=== PATIENT | female | born 1995 ===

== ENCOUNTER 2022-02-11 00:02 | Inpatient (IN) ==
[2022-02-11 01:09] LABS: Hematocrit (blood only) 36.2 % (37-47); Hemoglobin 12.1 g/dL (12.0-16.0); Mean Corpuscular Hemoglobin 28.9 pg (25-34); Mean Corpuscular Hgb Conc 33.4 g/dL (32-36); Mean Corpuscular Volume 86.6 fL (80-100); Mean Platelet Volume 10.4 fL (7.4-10.4); Platelet Count 247 K/uL (130-400); RDW Coefficient of Variation 13.1 % (11.5-14.5); RDW Standard Deviation 41.7 fL (36.4-46.3); Red Blood Count 4.18 M/uL (4.2-5.4)
[2022-02-11] MEDS ORDERED: BUPIVACAINE 0.25% 30 ML VIAL ONE (03:28)
[2022-02-11] MEDS ORDERED: fentaNYL citrate 100 MCG/2 ML VIAL ONE (03:28)
[2022-02-11] MEDS ORDERED: SODIUM CHLORIDE 0.9% INJ 10 ML VIAL ONE (03:28)
[2022-02-11] MEDS ORDERED: ePHEDrine sulfate 50 MG/ML AMP ONE (03:28)
[2022-02-11] MEDS ORDERED: fentaNYL 2MCG/ML ROPIVACAINE 1.25MG/ML 100 ML BAG EPI ONE (03:29)
[2022-02-11] MEDS: LACTATED RINGER'S 1,000 ML IV PRN ×2 (03:40→07:56)
--- NOTE | 2022-02-11 03:54 | History & Physical Report ---
Date of Service February 11, 2022 Assessment & Plan (1) Post-dates : Plan: Epidural planned anticipate normal delivery Admission and Anticipated Discharge Date Admission Date: February 11, 2022 History of Present Illness Chief Complaint: ruptured membranes at 2320 clear fluid Primary Care Provider: BANG PCP 26 F P1001 at 40.1 weeks with SROM clear fluid at 2320 with onset of early labor. GBS is negative. Covid is negative. Allergies Allergy/AdvReac Type Severity Reaction Status Date / Time No Known Allergies Allergy Verified 02/11/22 00:12 Home Medications Medication Instructions Recorded Confirmed Type vit no.95-ferrous 1 tab PO DAILY 02/06/22 02/11/22 History fumarate 28 mg-folic acid 800 mcg tablet () metronidazole 500 mg tablet 500 mg PO BID 7 Days #14 tab 02/08/22 Rx Patient History Medical History No known health problems Surgical History No history of previous surgery Family History Other No history of previous surgery No known health problems Social History Smoking Status: Current every day smoker Second Hand Exposure: No; Hx Alcohol Use: No Hx Substance Use: No Preferred Language: Latvian Communication Ability: Effective Superintendent Meters Required: No Beliefs That Will Affect Care: None marital status: Single Current Living Situation: Family and Significant Other Current Living Situation Comment: 9 year old daughter Other Information That Helps Us Care for You: No Feels Safe at Home: Yes Safety Concerns: Feels Safe At This Time Assistive Devices: None OB History x1 10 y/a [employer] History neg Review of Systems All systems reviewed & are unremarkable except as noted in HPI & below Physical Exam Constitutional: WD/WN, vitals as above Eyes: PERRL, conjunctivae normal, anicteric sclerae Respiratory: normal respiratory effort, lungs clear to auscultation Cardiovascular: RRR, no murmur, no edema Skin: no rashes, warm and dry Neurologic: patellar DTR's 2+ bilat, sensation intact Psychiatric: A+Ox3, euthymic affect Genitourinary: no vaginal lesions, no adnexal mass OB Exam Abdomen: + fundal height and + vertex OB Exam Monitor Tracing: + external FHT monitor used, + external uterine monitor used, + category I and + normal FHT variability 75/-2 per nurse on admission Results & Data ([facility]) Vital Signs (Past 12 Hours) Vital Signs Temp Pulse Resp BP Pulse Ox 02/11/22 03:47 72 99 02/11/22 03:42 70 99 02/11/22 03:21 66 127/82 02/11/22 02:02 36.6 C 20 02/11/22 00:14 36.9 C 82 18 120/74 02/11/22 00:09 36.9 C 82 18 120/74 Laboratory Results 02/11/22 02/11/22 00:58 Unknown WBC 12.20 H RBC 4.18 L Hgb 12.1 Hct 36.2 L MCV 86.6 MCH 28.9 MCHC 33.4 RDW Std Deviation 41.7 RDW Coeff of Pranav 13.1 Plt Count 247 MPV 10.4 SARS-CoV-2, RNA, NAAT NEGATIVE Monitoring External Monitor Cat 1
[2022-02-11] MEDS ORDERED: fentaNYL 2MCG/ML ROPIVACAINE 1.25MG/ML 100 ML BAG EPI PRN (03:57)
[2022-02-11] MEDS ORDERED: NALOXONE HCL 1 MG in SODIUM CHLORIDE 0.9% 1000ML 1,000 ML IV PRN (03:57)
[2022-02-11] MEDS ORDERED: fentaNYL citrate 100 MCG/2 ML VIAL IV PRN (03:57)
[2022-02-11] MEDS ORDERED: NALOXONE HCL 0.4 MG/1 ML VIAL/CARP IV PRN (03:57)
[2022-02-11] MEDS ORDERED: diphenhydrAMINE 50 MG/ML VIAL IV PRN (03:57)
[2022-02-11] MEDS ORDERED: ePHEDrine sulfate 50 MG/ML AMP IV PRN (03:57)
[2022-02-11] MEDS ORDERED: ONDANSETRON INJ 2 MG/ML 2 ML VIAL IV PRN (03:57)
[2022-02-11] MEDS ORDERED: NALBUPHINE HCL INJ 10 MG/ML AMP IV PRN (03:57)
--- NOTE | 2022-02-11 03:57 | Anesthesiology Consultation ---
Date of Service February 11, 2022 Assessment & Plan (1) Encounter for pre-operative examination: Chart Review Chart Review: Acceptable Risk for Surgery and Patient NOT seen in Pre Admission Testing Consults Requested none History Height/Weight Height: 5 ft 6 in Weight: 86.183 kg Allergies Allergy/AdvReac Type Severity Reaction Status Date / Time No Known Allergies Allergy Verified 02/11/22 00:12 Medications Home Medications Medication Instructions Recorded Confirmed Last Taken vit no.95-ferrous 1 tab PO DAILY 02/06/22 02/11/22 02/09/22 08:00 fumarate 28 mg-folic acid 800 mcg tablet () metronidazole 500 mg tablet 500 mg PO BID 7 Days #14 tab 02/08/22 Unknown Active Medications Generic Name Dose Route Start Last Admin Trade Name Freq PRN Reason Stop Dose Admin Lactated Ringer's 1,000 mls @ 125 mls/hr 02/11/22 00:44 02/11/22 03:40 Lr IV 02/13/22 00:43 999 mls/hr .Q8H PRN Administration L&D Protocol Protocol Past Medical History Medical History No known health problems Past Family History Family History Other No history of previous surgery No known health problems Past Surgical History Surgical History No history of previous surgery Social History Smoking Status: Current every day smoker tobacco type: e-cigarettes Hx Alcohol Use: No Hx Substance Use: No substance use type: does not use Physical Exam Vital Signs Last Vital Signs Temp 98.1 F 02/11/22 03:45 Pulse 79 02/11/22 03:52 Resp 20 02/11/22 02:02 BP 127/82 02/11/22 03:21 Pulse Ox 98 02/11/22 03:52 Testing Laboratory Results 02/11/22 00:58
--- NOTE | 2022-02-11 04:30 | Labor Progress Brief Note ---
Date of Service February 11, 2022 Assessment & Plan Admission and Anticipated Discharge Date Admission Date: February 11, 2022 Physical Exam Genitourinary: Manual OB Exam: + cervical dilation 5 cm and 6 cm, + cervical effacement 100% and + station -1 OB Exam Monitor Tracing: + external FHT monitor used, + external uterine monitor used, + category I and + normal FHT variability epidural in place Results [facility] ([facility]) Vital Signs (Past 12 Hours) Vital Signs Temp Pulse Resp BP Pulse Ox 02/11/22 04:27 68 99 02/11/22 04:23 74 128/73 02/11/22 04:22 73 98 02/11/22 04:21 71 136/82 02/11/22 04:19 75 137/79 02/11/22 04:17 85 140/77 99 02/11/22 04:15 81 142/77 H 02/11/22 04:12 81 98 02/11/22 04:07 77 98 02/11/22 04:02 77 98 02/11/22 03:57 77 99 02/11/22 03:52 79 98 02/11/22 03:47 72 99 02/11/22 03:45 36.7 C 02/11/22 03:42 70 99 02/11/22 03:21 66 127/82 02/11/22 02:02 36.6 C 20 02/11/22 00:14 36.9 C 82 18 120/74 02/11/22 00:09 36.9 C 82 18 120/74
--- NOTE | 2022-02-11 07:18 | Labor Progress Brief Note ---
Date of Service February 11, 2022 Subjective Patient doing well on epidural. no complaints at this time Assessment & Plan (1) Post-dates : Plan: Anticipate spontaneous vaginal delivery If no cervical change and hypotonic uterine contractions, consider starting oxytocin for augmentation Admission and Anticipated Discharge Date Admission Date: February 11, 2022 Physical Exam Genitourinary: FHT: Baseline 125, moderate variability, positive accelerati ons, no decelerations, category 1 tracing Tocometer: Contractions every 3 to 4 minutes Cervix: 6/100/0 checked by RN Results & Data ([facility]) Vital Signs (Past 12 Hours) Vital Signs Temp Pulse Resp BP Pulse Ox 02/11/22 07:12 70 97 02/11/22 07:07 61 99 02/11/22 07:05 63 103/63 02/11/22 07:02 72 99 02/11/22 07:00 16 02/11/22 06:57 58 L 97 02/11/22 06:52 58 L 98 02/11/22 06:50 57 L 109/55 L 02/11/22 06:47 70 99 02/11/22 06:42 70 99 02/11/22 06:37 63 98 02/11/22 06:32 65 99 02/11/22 06:30 16 02/11/22 06:27 60 99 02/11/22 06:22 63 99 02/11/22 06:21 62 100/58 L 02/11/22 06:17 70 99 02/11/22 06:12 71 99 02/11/22 06:07 73 99 02/11/22 06:05 36.7 C 58 L 122/59 L 02/11/22 06:02 66 98 02/11/22 06:00 16 02/11/22 05:57 59 L 97 02/11/22 05:52 77 99 02/11/22 05:49 65 118/60 02/11/22 05:47 62 98 02/11/22 05:42 64 97 02/11/22 05:37 64 98 02/11/22 05:36 66 118/69 02/11/22 05:32 64 97 02/11/22 05:30 16 02/11/22 05:27 65 97 02/11/22 05:22 61 98 02/11/22 05:19 56 L 108/55 L 02/11/22 05:17 62 98 05/13/22 05:12 60 97 02/11/22 05:07 61 97 02/11/22 05:04 57 L 104/55 L 02/11/22 05:02 62 97 02/11/22 05:00 16 02/11/22 04:57 62 97 02/11/22 04:52 60 98 02/11/22 04:50 76 116/61 02/11/22 04:47 75 99 02/11/22 04:42 66 100 02/11/22 04:37 70 99 02/11/22 04:34 69 129/64 02/11/22 04:32 69 99 02/11/22 04:30 16 02/11/22 04:29 74 154/64 H 02/11/22 04:28 18 02/11/22 04:27 68 99 02/11/22 04:23 74 18 128/73 02/11/22 04:22 73 98 02/11/22 04:21 71 20 136/82 02/11/22 04:19 75 18 137/79 02/11/22 04:17 85 18 140/77 99 02/11/22 04:15 81 20 142/77 H 02/11/22 04:12 81 98 02/11/22 04:07 77 98 02/11/22 04:02 77 98 02/11/22 03:57 77 99 02/11/22 03:52 79 98 02/11/22 03:47 72 99 02/11/22 03:45 36.7 C 02/11/22 03:42 70 99 02/11/22 03:21 66 127/82 02/11/22 02:02 36.6 C 20 02/11/22 00:14 36.9 C 82 18 120/74 02/11/22 00:09 36.9 C 82 18 120/74
[2022-02-11] MEDS: OXYTOCIN 30 UNITS/500 ML BAG IV PRN ×2 (08:55→09:57)
[2022-02-11] MEDS ORDERED: METHYLERGONOVINE MALEATE 0.2 MG/ML AMP ONE (09:01)
[2022-02-11] MEDS ORDERED: BENZOCAINE 20% AER SPR 82.5 GM CAN EXT PRN (09:07)
[2022-02-11] MEDS ORDERED: HYDROCORTISONE ACETATE 25 MG SUPP PR PRN (09:07)
[2022-02-11] MEDS ORDERED: bisacodyL 10 MG SUPP PR PRN (09:07)
[2022-02-11] MEDS ORDERED: ACETAMINOPHEN 325 MG TAB PO PRN (09:07)
[2022-02-11] MEDS ORDERED: OXYTOCIN 30 UNITS/500 ML BAG IV PRN (09:07)
[2022-02-11] MEDS ORDERED: DIPHTHERIA/TETANUS/PERTUSSIS 0.5 ML SYR/VIAL IM ONE (09:07)
--- NOTE | 2022-02-11 09:13 | Delivery Summary ---
Vaginal Delivery Summary Date of Service February 11, 2022 Vaginal Delivery Summary Delivery Note Patient was found to be 10/100+2 by RN. Called for delivery Delivery Summary: Patient was placed in the dorsal lithotomy position. She was prepped and draped in the usual sterile fashion. Upon maternal pushing the head was delivered atraumatically followed by the anterior shoulders, posterior shoulders then the remainder of the infants body. The infants mouth and nose were bulb suction b elow the level of the perineum. A male was delivered at 0849, weight pending with APGARS of 8 at 1 minute and 9 at 5 minutes. The umbilical cord was clamped times two and cut after 60 sec of delayed cord clamping. The was handed off to the awaiting nursing staff. Cord blood was obtained. The placenta delivered intact with three vessel cord at 0855. Placenta was sent to pathology (hold). Thirty units of Pitocin were added to the IV fluid and allowed to run freely. Uterine massage was performed until uterus was deemed firm. Noted gush of bleeding and atony of lower uterine segmen t and she was given Methergine 0.2mg IM x1 dose (patient also has history of PPH in previous delivery due to uterine atony). Upon inspection of the perineum, vagina and cervix were intact. Second degree laceration was noted which was repaired with 3-0 vicryl in the usual fashion. Noted periuretheral that was hemostatic and not repaired. Small right labial laceration was noted and repaired with 3-0 Vicryl in figure of 8 fashion. Upon re-inspection the patient was hemostatic. Uterus again massaged and found to be firm. Needle and sponge counts were correct. Patient was stable and allowed to recover in L&D room. was stable and remained in room with mother in the Family Care Unit.
--- NOTE | 2022-02-11 09:28 | Anesthesia Procedure Note ---
Date of Service February 11, 2022 Anesthesia Post Epidural Note Vital Signs Vital Signs: Temp Pulse Resp BP Pulse Ox 36.7 C 70 20 130/61 98 02/11/22 08:00 02/11/22 09:23 02/11/22 08:01 02/11/22 09:23 02/11/22 08:47 Notes Mental Status: alert / awake / arousable and participated in evaluation Nausea / Vomiting: adequately controlled Pain: adequately controlled Airway Patency, RR, SpO2: stable & adequate BP & HR: stable & adequate Hydration State: stable & adequate Neuraxial Anesthesia: was administered and sensory block is resolving Anesthetic Complications: no major complications apparent and Pt Satisfied with anesthetic care Epidural: Removed without complications and With tip intact
[2022-02-11] MEDS: IBUPROFEN 600 MG TAB PO PRN ×2 (12:45→21:06)
[2022-02-11] MEDS: DOCUSATE SODIUM 100 MG CAP PO SCH (21:06)
[2022-02-12 06:59] LABS: Hematocrit (blood only) 37.9 % (37-47); Hemoglobin 12.5 g/dL (12.0-16.0); Mean Corpuscular Hemoglobin 28.7 pg (25-34); Mean Corpuscular Volume 86.9 fL (80-100); Mean Platelet Volume 10.2 fL (7.4-10.4); Platelet Count 234 K/uL (130-400); RDW Coefficient of Variation 13.2 % (11.5-14.5); RDW Standard Deviation 42.2 fL (36.4-46.3); Red Blood Count 4.36 M/uL (4.2-5.4); White Blood Count 14.34 K/uL (4.8-10.8)
[2022-02-12] MEDS ORDERED: PRENATAL VITAMIN 1 TAB PO SCH (08:00)
[2022-02-12] MEDS: DOCUSATE SODIUM 100 MG CAP PO SCH (08:11)
[2022-02-12] MEDS: IBUPROFEN 600 MG TAB PO PRN (08:11)
--- NOTE | 2022-02-12 08:40 | Obstetrical Progress Note ---
Date of Service February 12, 2022 Subjective Ambulation: ambulating normally Voiding: no voiding problems Passing Gas:: Yes Diet Tolerance:: regular diet Lochia:: Small Feeding Type:: breast feeding Current Pain Level(1-10): 0 doing well . plans for d/c Physical Exam Constitutional WD/WN, vitals as above Respiratory normal respiratory effort, lungs clear to auscultation Cardiovascular RRR, no murmur, no edema Skin no rashes, warm and dry Neurologic patellar DTR's 2+ bilat, sensation intact Genitourinary abdomen soft and non-tender. fundus firm below U Results & Data ([facility]) Vital Signs (Past 12 Hours) Vital Signs Temp Pulse Resp BP 02/12/22 04:35 36.6 C 73 18 107/70 02/12/22 00:50 36.7 C 74 18 120/76 Laboratory Results Laboratory Results - last 72 hr 02/11/22 02/11/22 02/11/22 00:48 00:58 Unknown WBC 12.20 H RBC 4.18 L Hgb 12.1 Hct 36.2 L MCV 86.6 MCH 28.9 MCHC 33.4 RDW Std Deviation 41.7 RDW Coeff of Pranav 13.1 Plt Count 247 MPV 10.4 Amniotic Protein POS SARS-CoV-2, RNA, NAAT NEGATIVE 02/12/22 06:31 WBC 14.34 H RBC 4.36 Hgb 12.5 Hct 37.9 MCV 86.9 MCH 28.7 MCHC 33.0 RDW Std Deviation 42.2 RDW Coeff of Pranav 13.2 Plt Count 234 MPV 10.2 Amniotic Protein SARS-CoV-2, RNA, NAAT
[2022-02-12] MEDS ORDERED: bisacodyL 5 MG TABEC PO SCH (20:00)
== END 2022-02-12 16:30 | disposition home or self-care (01) | DRG 806 ==
LOC: OPB 00:02 → 4S1 00:05 → 4E2 12:31